=== PATIENT | female | born 1945 | race Caucasian/White ===

== ENCOUNTER 2016-09-06 13:49 | Inpatient (IN) | payer MEDICARE ==
[~2016-09-06] VITALS: Ht 167.6 cm; Wt 82.0 kg
[2016-09-10] MEDS ORDERED: ZOLP5TAB3 PO (09:13)
[2016-09-10] MEDS ORDERED: HYOS0.129 PO (09:13)
[2016-09-10] MEDS ORDERED: DULO1CAP2 PO (09:13)
[2016-09-10] MEDS ORDERED: VITA10003 PO (09:13)
[2016-09-10] MEDS ORDERED: NORC5TAB PO (09:13)
[2016-09-10] MEDS ORDERED: DIPH1TAB36 PO (09:13)
[2016-09-10] MEDS ORDERED: ONDA1TAB16 PO (09:13)
[2016-09-10] MEDS ORDERED: NEXI20CA PO (09:24)
[2016-09-16] MEDS ORDERED: PROPOFOL 200 MG/20 ML AMP IV ONE (11:32)
[2016-09-16] MEDS ORDERED: NEOSTIGMINE 3 MG/3 ML SYR IV ONE (11:32)
[2016-09-16] MEDS ORDERED: ONDANSETRON HCL 4 MG/2 ML VIAL IV PUSH ONE (11:32)
[2016-09-16] MEDS ORDERED: ePHEDrine/NS 50 MG/5 ML SYR IV ONE (11:32)
[2016-09-16] MEDS ORDERED: SODIUM CHLOR 0.9% 250 ML INJ 250 ML ONE (12:11)
[2016-09-16] MEDS ORDERED: VANCOMYCIN HCL 1000 MG VIAL ONE (12:11)
[2016-09-16 12:14] VITALS: BP 110/71; PULSE 75; RESP 20; TEMP 96.7; O2SAT 95
[2016-09-16] MEDS ORDERED: LACTATED RINGER'S 1000 ML INJ 1,000 ML ONE (12:27)
[2016-09-16] MEDS ORDERED: MIDAZOLAM HCL 5 MG/5 ML VIAL ONE (12:38)
[2016-09-16] MEDS ORDERED: DEXAMETHASONE SOD PHOS 4 MG/ML VIAL ONE (12:38)
[2016-09-16] MEDS ORDERED: LACTATED RINGER'S 1000 ML IV SCH (12:45)
[2016-09-16] MEDS ORDERED: SODIUM CHLORID 0.9% 500 ML IV SCH (12:45)
[2016-09-16] MEDS ORDERED: METOPROLOL TARTRATE 25 MG TAB PO PRN (12:45)
[2016-09-16] MEDS ORDERED: INSULIN HUMAN REGULAR 1,000 UNITS/10 ML VIAL SQ PRN (12:45)
[2016-09-16] MEDS ORDERED: ceFAZolin 2 GM PREMIX 50 ML ONE (12:57)
[2016-09-16] MEDS ORDERED: GENTAMICIN SULFATE 80 MG/2 ML VIAL ONE (12:58)
[2016-09-16] MEDS ORDERED: CLINDAMYCIN PHOS 600 MG/4 ML VIAL ONE (12:59)
[2016-09-16] MEDS ORDERED: CLINDAMYCIN PHOS 900 MG/6 ML VIAL ONE (12:59)
[2016-09-16] MEDS ORDERED: ROPIVACAINE PERI-ARTICULAR INJECTION. PERIART SCH ×5 (13:00)
[2016-09-16] MEDS ORDERED: VANCOMYCIN 1000 MG/NS 250 ML (for <70 kg) IV SCH ×2 (13:00)
[2016-09-16] MEDS ORDERED: CHLORHEXIDINE GLUCONATE 4% SOLN 120 ML BTL TOP SCH (13:00)
[2016-09-16] MEDS ORDERED: fentaNYL CITRATE 250 MCG/5 ML AMP ONE (13:12)
[2016-09-16] MEDS ORDERED: FAMOTIDINE 20 MG/2 ML VIAL ONE (13:12)
[2016-09-16] MEDS ORDERED: ACETAMINOPHEN 1000 MG/100 ML VIAL IV ONE (13:12)
[2016-09-16] MEDS ORDERED: MIDAZOLAM HCL 2 MG/2 ML VIAL ONE (13:59)
[2016-09-16] MEDS ORDERED: Post-op Orders (for Pharmacy) MISC XX ONE (16:45)
[2016-09-16] MEDS: PCA - TOTAL MG MORPHINE DELIVERED PER SHIFT SCH ×2 (16:45→22:00)
[2016-09-16] MEDS ORDERED: NALOXONE HCL 0.4 MG/ML AMP IV PRN (16:45)
[2016-09-16] MEDS ORDERED: SODIUM CHLORIDE 0.9% FLUSH 5 ML FLUSH IVF PRN (16:45)
[2016-09-16] MEDS ORDERED: DO NOT ADM ANY ANTICOAGULANT DRUGS XX PRN (16:48)
[2016-09-16] MEDS ORDERED: CPMMACHINE (16:50)
[2016-09-16] MEDS ORDERED: WALKER WHEELS/F1 MIS (16:50)
--- NOTE | 2016-09-16 16:51 | HHI.FF ---
Face to Face Verification Diagnosis: (1) Osteoarthritis of right knee Physical Therapy Gait training, Safety evaluation Knee: Total knee, Protocol: Right, Full weight bearing Right LE Weight Bearing: WB as tolerated Left LE Weight Bearing: WB as tolerated Nursing RN Days per Week: 5 x Week(s): 2 Nursing: Dressing changes (clean incision with alcohol and apply dry sterile dressing ) Additional Instructions Pt/INR q Friday and , call or text results to Jennifer ROSSI [phone] Goal INR 1.5-1.8 I have seen patient Lucy De Dios on 09/16/16. My clinical findings support the need for the requested home health care services because: Deconditioned w/ increased weakness I certify that my clinical findings support that this patient is homebound because: Post-op weakness Unsteady gait/balance Kraig Hargrove MD Sep 16, 2016 16:51
[2016-09-16] MEDS ORDERED: *morphine SULFATE 8 MG/ML PERIprocedure ONLY ONE ×3 (16:54→17:10)
[2016-09-16] MEDS ORDERED: MORPHINE SULFATE 8 MG/ML INJ IV PUSH ONE ×3 (16:54→17:22)
--- NOTE | 2016-09-16 17:26 | RADRPT ---
EXAM DATE/TIME: 09/16/2016 16:54 [facility] COMPARISON: No previous studies available for comparison. INDICATIONS : Post right knee arthroplasty MEDICAL HISTORY : Arthritis. SURGICAL HISTORY : None. ENCOUNTER: Initial ACUITY: 1 day PAIN SCORE: 9/10 LOCATION: Right knee FINDINGS: The patient is status post right total knee replacement with prosthesis in good position. No acute f racture or dislocation is noted. CONCLUSION: Status post right total knee replacement with prosthesis in good position. Stephane Oliveira MD on September 16, 2016 at 17:11 Board Certified Radiologist. This report was verified electronically.
[2016-09-16] MEDS: LACTATED RINGER'S 1000 ML INJ 1,000 ML IV SCH (17:40)
[2016-09-16] MEDS: MORPHINE SULFATE 30 MG/30 ML PCA IV SCH (17:48)
[2016-09-16] MEDS ORDERED: *HYDROmorphone PF 1 MG VIAL PERIprocedural Use ONLY ONE (17:55)
[2016-09-16] MEDS ORDERED: HYDROmorphone HCL PF 1 MG/ML VIAL IV ONE (17:55)
[2016-09-16] MEDS ORDERED: ACETAMINOPHEN/HYDROcodone 325 MG/7.5 MG TAB PO PRN (18:00)
[2016-09-16] MEDS ORDERED: HYOSCYAMINE 0.125 MG TAB PO PRN (18:00)
[2016-09-16] MEDS ORDERED: ONDANSETRON HCL 4 MG/2 ML VIAL IVP PRN (18:00)
[2016-09-16] MEDS ORDERED: *RESP: ALBUTEROL 2.5 MG/3 ML NEB (PRN) PERIprocedural Use ONLY NEB ONE (18:04)
[2016-09-16 18:58] VITALS: BP 113/61; PULSE 84; RESP 16; TEMP 96.8; O2SAT 93
[2016-09-16 20:00] VITALS: BP 121/65; PULSE 94; RESP 18; TEMP 97.1; O2SAT 96
[2016-09-16] MEDS: SODIUM CHLORIDE 0.9% FLUSH 5 ML FLUSH IVF SCH (20:33)
[2016-09-16] MEDS: ZOLPIDEM TARTRATE 5 MG TAB PO PRN (21:19)
[2016-09-17] VITALS (7 sets, daily range): BP systolic 106–129; BP diastolic 62–69; PULSE 75–88; RESP 16–20; TEMP 96.6–97.4; O2SAT 93–97
[2016-09-17] MEDS: MORPHINE SULFATE 30 MG/30 ML PCA IV SCH (05:22)
[2016-09-17] MEDS: PCA - TOTAL MG MORPHINE DELIVERED PER SHIFT SCH (05:38)
[2016-09-17 06:17] LABS: HEMATOCRIT 34.7 % (35.0-46.0); REVIEW FLAG FINAL
--- NOTE | 2016-09-17 06:54 | PD.ORT.PN ---
Subjective Subjective Remarks POD#1 R TKR No c/o pain No SOB/Chest pain Explained to pt operative findings Objective Vitals Vital Signs Date Time Temp Pulse Resp B/P Pulse Ox O2 Delivery O2 Flow Rate FiO2 09/17/16 04:00 96.6 87 16 113/67 94 09/17/16 00:00 97.0 88 16 113/64 93 09/16/16 20:00 97.1 94 18 121/65 96 09/16/16 18:58 96.8 84 16 113/61 93 09/16/16 18:30 92 16 121/66 96 Nasal Cannula 3 09/16/16 18:00 84 16 129/62 96 Nasal Cannula 3 09/16/16 17:48 16 09/16/16 17:45 78 16 118/58 95 Nasal Cannula 3 09/16/16 17:30 94 16 132/66 95 Nasal Cannula 3 09/16/16 17:15 84 16 111/57 94 Nasal Cannula 3 09/16/16 17:00 74 16 114/60 94 Nasal Cannula 3 09/16/16 16:48 98.3 72 16 116/60 93 Nasal Cannula 3 09/16/16 12:14 96.7 75 20 110/71 95 I/O 09/16/16 09/16/16 09/16/16 09/17/16 09/17/16 09/17/16 07:00 15:00 23:00 07:00 15:00 23:00 Intake Total 1213 ml 640 ml Output Total 400 ml 80 ml Balance 813 ml 560 ml Intake Oral 480 ml IV Total 533 ml 640 ml Autotransfusion 200 ml Output Urine Total 200 ml Drainage Total 80 ml Autotransfusion 200 ml # Voids 1 # Bowel Movements 0 Result Diagram: 09/17/16 0530 Imaging Last 24 hours Impressions Knee X-Ray 09/16/16 1643 Signed Impressions: Service Date/Time: Friday, September 16, 2016 16:54 - CONCLUSION: Status post right total knee replacement with prosthesis in good position. Stephane Oliveira MD Objective Remarks N/V intact Neg tarsha's;no calf tenderness Assessment & Plan Assessment and Plan Ortho stable PT,rehab Coumadin,TEDS,Sequentials for DVT prophylaxsis D/C home tomorrow. [facility] Nursing,PT Kraig Hargrove MD Sep 17, 2016 06:54
[2016-09-17 06:56] LABS: INTERNATIONAL NORMALIZED RATIO 1.2 RATIO
[2016-09-17] MEDS: SODIUM CHLORIDE 0.9% FLUSH 5 ML FLUSH IVF SCH ×2 (09:00→22:10)
[2016-09-17] MEDS: DULoxetine HCl DR 30 MG CAP PO SCH (09:19)
[2016-09-17] MEDS: PANTOPRAZOLE SOD 20 MG DELAYED RELEASE TAB PO SCH (09:19)
[2016-09-17] MEDS: LACTATED RINGER'S 1000 ML INJ 1,000 ML IV SCH ×2 (09:24→19:00)
--- NOTE | 2016-09-17 09:59 | MP ---
cc: MAITE LEÓN M.D., ALBERT DATE OF SURGERY: 09/16/2016 PREOPERATIVE DIAGNOSIS: Right knee severe osteoarthritis, genu valgus deformity severe tricompartmental osteoarthritis, genu valgus deformity. POSTOPERATIVE DIAGNOSIS Right knee severe osteoarthritis, genu valgus deformity severe tricompartmental osteoarthritis, genu valgus deformity. PROCEDURE Right total knee arthroplasty - cemented Biomet vanguard. SURGEON Aimee Hargrove MD ASSESSMENT MICKIE Gusman SPECIMENS SENT None. ESTIMATED BLOOD LOSS 50 cc COMPLICATIONS None ANESTHESIA General, regional. DRAINS: Two. TOURNIQUET TIME 54 minutes at 250 mmHg CONDITION: condition stable PLAN OF ACTIVITY: As per orders. PROCEDURE My molding line assistant MICKIE Gusman was present for the entire surgical case. She was medically necessary for entire case because of complexity case and to facilitate the performance of procedure. The SOLAR INSTALLATION TECHNICIAN at back table not a skill set this case manipulate the instruments e.g. multiple different soft tissue retractors, plantar and permanent implants including bone cement. The patient was operating room and had satisfactory anesthesia by Department of Anesthesia. Right lower extremity was prepped and draped in usual sterile manner. The extremity was exsanguinated by elevation tourniquet was inflated to 250 mmHg. Small anterior exposure knee was made to the knee. Primary capsulotomy performed the patella dislocated laterally, the knee was found to have severe tricompartmental osteoarthritis genu valgus deformity of approximately 8 degrees. The remaining portion of medial and lateral meniscus removed anterior fat pad and prepatellar fat pad was removed. Anterior cruciate ligament was removed, posterior cruciate ligament was preserved. Using Biomet Vanguard total knee arthroplasty system IM guide was used distal femur to accept a 62.5 femoral component it was cut 45 degrees valgus. The proximal tibia was extramedullary guide was used proximal tibia cut. This was to accept a 71 mm tibial component. Balancing was made on knee both flexion/extension. 10 mm insert was found to be satisfactory. Undersurface of the patella was removed to accept a 31 mm three-pronged patellar prosthesis. All trial components were removed. Preparation was made for cementing. Two packages of high viscosity bone cement was used. First the tibial component was cemented which is a 71 tibial component. Followed by the femoral component, which was a 62.5 mm femoral component followed by the tibia which is a 31 mm patellar prosthesis three-pronged. All excess bone cement was removed bone cement allowed to harden for 12.5 minutes. The knee 10 x 71 mm tibial prosthesis was inserted onto the tibial tray, with appropriate clicking and locking mechanism. The knee was irrigated with 4000 cc of saline solution. The knee was also injected with medication from pharmacy of 100 cc to provide postoperative hemostasis and analgesia. The tourniquet was deflated. All bleeders coagulated. Wound itself was dry closed over two Hemovac drains hooked up automatic type system the capsule and quadriceps mechanism was repaired using multiple interrupted #2 Tycron sutures. Subcutaneous layers using Vicryl 2-0 Vicryl. Skin approximated with skin atul. Sterile dressings were applied. The patient tolerated the procedure well and arrived to the Recovery Room in stable and satisfactory addition. MD ALEIDA Wilson/lindsey /4:36 PM /9:32 AM [facility]
[2016-09-17] MEDS ORDERED: BUPIVACAINE HCL PF 0.5% 30 ML VIAL NB ONE (11:50)
[2016-09-17] MEDS: ACETAMINOPHEN/HYDROcodone 325 MG/7.5 MG TAB PO PRN ×3 (12:47→22:09)
--- NOTE | 2016-09-17 14:18 | PD.CONS ---
HPI Service [facility] Requested By Reason for Consult Medical management Primary Care Physician Susan Sorensen MD Diagnoses: History of Present Illness Patient is a very pleasant 71-year-old female who is admitted under orthopedic services and underwent right total knee replacement September 16. She has been having right knee pain dealing with this for the past 10 years however in the last few months with increasing pain and difficulty ambulation. Patient currently seen first day postop. Very motivated with physical therapy classes. is very supportive. Plan is to go home with home health care with physical therapy. Patient currently denies any pain. [facility] consulted for medical management. Patient with history of mood disorder and chronic abdominal pain/irritable bowel syndrome. Very motivated attending- physical therapy classes Review of Systems Constitutional: DENIES: Diaphoretic episodes, Fatigue, Fever, Weight gain, Weight loss, Chills, Dizziness, Change in appetite, Night Sweats Endocrine: DENIES: Abnorml menstrual pattern, Heat/cold intolerance, Polydipsia , Polyuria, Polyphagia Eyes: DENIES: Blurred vision, Diplopia, Eye inflammation, Eye pain, Vision loss , Photosensitivity, Double Vision Ears, nose, mouth, throat: DENIES: Tinnitus, Hearing loss, Vertigo, Nasal discharge, Oral lesions, Throat pain, Hoarseness, Ear Pain, Running Nose, Epistaxis, Sinus Pain, Toothache, Odynophagia Respiratory: DENIES: Apneas, Cough, Snoring, Wheezing, Hemoptysis, Sputum production, Shortness of breath Cardiovascular: DENIES: Chest pain, Palpitations, Syncope, Dyspnea on Exertion , PND, Lower Extremity Edema, Orthopnea, Claudication Gastrointestinal: DENIES: Abdominal pain, Black stools, Bloody stools, Constipation, Diarrhea, Nausea, Vomiting, Difficulty Swallowing, Anorexia Genitourinary: DENIES: Abnormal vaginal bleeding, Dysmenorrhea, Dyspareunia, Sexual dysfunction, Urinary frequency, Urinary incontinence, Urgency, Hematuria , Dysuria, Nocturia, Vaginal discharge Musculoskeletal: COMPLAINS OF: Joint pain Integumentary: DENIES: Abnormal pigmentation, Pruritus, Rash, Nail changes, Breast masses, Breast skin changes, Nipple discharge Hematologic/lymphatic: DENIES: Bruising, Lymphadenopathy Immunologic/allergic: DENIES: Eczema, Urticaria Neurologic: DENIES: Abnormal gait, Headache, Localized weakness, Paresthesias, Seizures, Speech Problems, Tremor, Poor Balance Psychiatric: DENIES: Anxiety, Confusion, Mood changes, Depression, Hallucinations, Agitation, Suicidal Ideation, Homicidal Ideation, Delusions Past Family Social History Allergies: Coded Allergies: Latex (Verified Allergy, Severe, Rash, 09/10/16) Penicillin (Verified Allergy, Severe, Rash, 02/21/05) Toradol (Verified Allergy, Severe, CAUSES BLOOD CLOTS, 02/21/05) Percocet (Verified Allergy, Intermediate, vivid dreams, 09/10/16) pt sts she has very vivid dreams with color Percodan (Verified Allergy, Intermediate, vivid dreams, 09/10/16) pt sts very vivid dreams in color Past Medical History Mood disorder Irritable bowel syndrome Past Surgical History Bilateral hip surgery Had an EGD done in the past negative Screening colonoscopy unremarkable Reported Medications Duloxetine 30 mg daily Benadryl when necessary Tylenol when necessary zolpidem 5 mg at bedtime when necessary for pain Nexium Vitamin D Family History Unremarkable noncontributory Social History History of smoking quit 30 years ago Occasional wine Physical Exam Vital Signs Vital Signs Date Time Temp Pulse Resp B/P Pulse Ox O2 Delivery O2 Flow Rate FiO2 09/17/16 09:48 95 21 09/17/16 08:00 97.4 75 20 106/62 94 09/17/16 04:00 96.6 87 16 113/67 94 09/17/16 00:00 97.0 88 16 113/64 93 09/16/16 20:00 97.1 94 18 121/65 96 09/16/16 18:58 96.8 84 16 113/61 93 09/16/16 18:30 92 16 121/66 96 Nasal Cannula 3 09/16/16 18:00 84 16 129/62 96 Nasal Cannula 3 09/16/16 17:48 16 09/16/16 17:45 78 16 118/58 95 Nasal Cannula 3 09/16/16 17:30 94 16 132/66 95 Nasal Cannula 3 09/16/16 17:15 84 16 111/57 94 Nasal Cannula 3 09/16/16 17:00 74 16 114/60 94 Nasal Cannula 3 09/16/16 16:48 98.3 72 16 116/60 93 Nasal Cannula 3 Physical Exam GENERAL: in no apparent distress. SKIN: No rashes, ecchymoses or lesions. Cool and dry. HEAD: Atraumatic. Normocephalic. No temporal or scalp tenderness. EYES: Pupils equal round and reactive. Extraocular motions intact. No scleral icterus. No injection or drainage. ENT: Nose without bleeding, purulent drainage or septal hematoma. Throat without erythema, tonsillar hypertrophy or exudate. Uvula midline. Airway patent. NECK: Trachea midline. No JVD or lymphadenopathy. Supple, nontender, no meningeal signs. CARDIOVASCULAR: Regular rate and rhythm without murmurs, gallops, or rubs. RESPIRATORY: Clear to auscultation. Breath sounds equal bilaterally. No wheezes , rales, or rhonchi. GASTROINTESTINAL: Abdomen soft, non-tender, nondistended. MUSCULOSKELETAL: Right lower extremity with postop dressing in place Extremities without clubbing, cyanosis, or edema. N NEUROLOGICAL: Awake and alert. Cranial nerves II through XII intact. Motor and sensory grossly within normal limits. Five out of 5 muscle strength in all muscle groups. Normal speech. Laboratory Laboratory Tests Test 09/17/16 05:30 Hemoglobin 11.4 Hematocrit 34.7 Prothrombin Time 13.0 Prothromb Time International 1.2 Ratio Result Diagram: 09/17/16 0530 Imaging Last Impressions Knee X-Ray 09/16/16 1643 Signed Impressions: Service Date/Time: Friday, September 16, 2016 16:54 - CONCLUSION: Status post right total knee replacement with prosthesis in good position. Stephane Oliveira MD Assessment and Plan Assessment and Plan 71-year-old female admitted for Status post right total knee arthroplasty September Physical therapy daily Orthopedic surgery following History of mood disorder continue on the Loxitane History of irritable bowel syndrome continue on Bentyl DVT prophylaxis per orthopedic service patient on Coumadin bulk plant manager consulted for DMD for discharge planning Discussed Condition With Simona Aguilera MD Sep 17, 2016 14:18
[2016-09-17] MEDS: ALUMINUM/MAGNESIUM/SIMETH 30 ML CUP PO PRN ×2 (15:33→22:10)
[2016-09-17] MEDS ORDERED: WARFARIN SOD 5 MG TAB PO SCH (16:00)
[2016-09-17] MEDS: ZOLPIDEM TARTRATE 5 MG TAB PO PRN (22:18)
[2016-09-18 00:45] VITALS: BP 113/63; PULSE 89; RESP 16; TEMP 97.4; O2SAT 94
[2016-09-18] MEDS: ACETAMINOPHEN/HYDROcodone 325 MG/7.5 MG TAB PO PRN ×3 (02:07→10:30)
[2016-09-18] MEDS: ALUMINUM/MAGNESIUM/SIMETH 30 ML CUP PO PRN ×2 (06:22→10:29)
[2016-09-18 06:39] LABS: INTERNATIONAL NORMALIZED RATIO 1.2 RATIO; PROTHROMBIN TIME - PATIENT 13.9 SEC (9.8-11.6)
[2016-09-18] MEDS ORDERED: BEDSIDE COMMODE1 MI1 (07:44)
--- NOTE | 2016-09-18 07:47 | PD.ORT.PN ---
Subjective Subjective Remarks pt doing better, feels she can go home today c/p post op knee pain, no other complaints Objective Vitals Vital Signs Date Time Temp Pulse Resp B/P Pulse Ox O2 Delivery O2 Flow Rate FiO2 09/18/16 00:45 97.4 89 16 113/63 94 09/17/16 21:00 97.3 81 16 126/64 95 09/17/16 16:00 96.6 80 20 129/68 97 09/17/16 12:00 96.8 85 20 121/69 94 09/17/16 09:48 95 21 09/17/16 08:00 97.4 75 20 106/62 94 I/O 09/17/16 09/17/16 09/17/16 09/18/16 09/18/16 09/18/16 07:00 15:00 23:00 07:00 15:00 23:00 Intake Total 1000 ml 980 ml 460 ml 480 ml Output Total 480 ml 1080 ml Balance 520 ml -100 ml 460 ml 480 ml Intake Oral 360 ml 980 ml 460 ml 480 ml IV Total 640 ml Output Urine Total 400 ml 1075 ml Drainage Total 80 ml 5 ml # Voids 5 3 # Bowel Movements 0 0 0 Result Diagram: 09/17/16 0530 Other Results Laboratory Tests Test 09/18/16 05:24 Prothrombin Time 13.9 SEC (9.8-11.6) Prothromb Time International 1.2 RATIO Ratio Imaging Last 24 hours Impressions Knee X-Ray 09/16/16 1643 Signed Impressions: Service Date/Time: Friday, September 16, 2016 16:54 - CONCLUSION: Status post right total knee replacement with prosthesis in good position. Stephane Oliveira MD Objective Remarks sitting up in chair, in room right knee dressing dry N/V intact Neg tarsha's;no calf tenderness Assessment & Plan Assessment and Plan POD # 2 s/p R TKA Ortho stable PT,rehab Coumadin,TEDS,Sequentials for DVT prophylaxsis discharge home today with [facility] Jennifer Michel Sep 18, 2016 07:47
[2016-09-18 08:00] VITALS: BP 105/73; PULSE 80; RESP 20; TEMP 97.9; O2SAT 95
[2016-09-18] MEDS: PANTOPRAZOLE SOD 20 MG DELAYED RELEASE TAB PO SCH (08:19)
[2016-09-18] MEDS: DULoxetine HCl DR 30 MG CAP PO SCH (08:19)
[2016-09-18] MEDS ORDERED: WARFARIN SOD 4 MG TAB PO ONE (16:00)
--- NOTE | 2016-09-30 08:42 | HHI.DS ---
Discharge Summary Admission Date Sep 16, 2016 at 11:28 Discharge Date: Sep 18, 2016 Admitting Diagnosis right knee osteoarthritis Diagnosis: (1) Osteoarthritis of right knee Diagnosis: Principal Procedures R TKA Brief History This is a 71 year old female patient who presents with the following history. Patient has had continued right knee pain. She has failed all non-operative conservative care which includes NSAIDs, analgesics, multiple steroid injections and assistive ambulation. She has continued right knee pain and would like to undergo total knee arthroplasty to improve her quality of life. Imaging x-rays of the right knee show severe tri compartment osteoarthritis PE at Discharge sitting up in chair, in room right knee dressing dry N/V intact Neg tarsha's;no calf tenderness Hospital Course Patient underwent satisfactory anaesthesia by the dept of anaesthesia. She underwent right total knee arthroplasty on the date of admission. She was treated with low dose Coumadin night before surgery and will continue to be treated with low dose coumadin for four weeks post operatively. She was started with physical therapy, full weight bearing ambulation on pod #1. She was also started with CPM machine. She was seen and followed by medical during her stay. She progressed well and was discharged home with home health therapy and nursing on pod #2. Condition at time of discharge was stable. Pt Condition on Discharge: Stable Discharge Disposition: Disch w/ Home Health Serv Discharge Instructions Diet Instructions: Coumadin (Warfarin) Diet Activities You Can Perform: Weight Bearing as Jennifer Moreau Sep 30, 2016 08:42
== END 2016-09-18 11:21 | disposition home health service (06) | DRG 470 ==
LOC: HSDI 09-16 11:28 → N06B 09-16 18:54
PROVIDERS: ADMIT Orthopaedic Surgery Orthopaedic Surgery of the Spine; ATTEND Orthopaedic Surgery Orthopaedic Surgery of the Spine
PROC: 3E0T3CZ (ICD-10-PCS; 2016-09-16)
PROC: 0SRC0J9 Replacement of Right Knee Joint with Synthetic Substitute, Cemented, Open Approach (ICD-10-PCS; principal; 2016-09-16 14:44)
DX: M17.11 Unilateral primary osteoarthritis, right knee (principal); M21.061 Valgus deformity, not elsewhere classified, right knee; F39 Unspecified mood [affective] disorder; K58.9 Irritable bowel syndrome, unspecified; M81.0 Age-related osteoporosis without current pathological fracture; G89.29 Other chronic pain; Z87.891 Personal history of nicotine dependence
CPT/HCPCS: 73560; 85014; 85018; 85610; 86850; 86900; 86901; 86920; 86922; 94150; C1776; J0131; J0171; J0690; J0735; J1100; J1170; J1580; J1885; J2250; J2270; J2405; J2710; J2795; J3010; J3370; J7050; J7120; J7613; L1830

== ENCOUNTER → 2016-09-10 | Outpatient (CLI) | payer MEDICARE ==
[~2016-09-10] MED LIST: BEDSIDE COMMODE1 MI1; CPMMACHINE; DIPH1TAB36 PO; DULO1CAP2 PO; HYOS0.129 PO; NEXI20CA PO; NORC5TAB PO; ONDA1TAB16 PO; VITA10003 PO; WALKER WHEELS/F1 MIS; ZOLP5TAB3 PO
[2016-09-10 09:05] LABS: AUTOMATED NEUTROPHIL # 4.3 TH/MM3 (1.8-7.7); BASOPHIL % 0.5 % (0.0-2.0); EOSINOPHIL # 0.1 TH/MM3 (0-0.4); EOSINOPHIL % 1.7 % (0.0-4.0); HEMATOCRIT 39.1 % (35.0-46.0); HEMO FLAGS DIFF FINAL; LYMPH % 32.7 % (9.0-44.0); LYMPHOCYTE # 2.4 TH/MM3 (1.0-4.8); MEAN CELL VOLUME 90.1 FL (80.0-100.0); MEAN CORPUSCULAR HEMOGLOBIN 30.4 PG (27.0-34.0); MEAN CORPUSCULAR HGB CONC 33.8 % (32.0-36.0); MONO % 5.7 % (0.0-8.0); NEUT % 59.4 % (16.0-70.0); PLATELET COUNT 290 TH/MM3 (150-450); RED BLOOD COUNT 4.34 MIL/MM3 (4.00-5.30); RED CELL DISTRIBUTION WIDTH 12.5 % (11.6-17.2); WHITE BLOOD COUNT 7.2 TH/MM3 (4.0-11.0)
[2016-09-10 09:45] LABS: POTASSIUM 3.5 MEQ/L (3.5-5.1)
[2016-09-10 11:10] LABS: BLOOD, URINE NEG (NEG); GLUCOSE,URINE NEG (NEG); KETONE, URINE NEG (NEG); NITRITE,URINE NEG (NEG); PH, URINE 7.5 (5.0-8.5); SQUAMOUS EPITHELIAL CELL URINE 1 /hpf (0-5); URINE COLOR YELLOW (YELLW/STRAW)
[2016-09-10 11:13] LABS: COMMENT (UR) CATH-CULT NOT IND; CULTURE IF INDICATED CATH CULTURE NOT IND
--- NOTE | 2016-09-10 23:35 | EKG ---
Date Performed: 09/10/2016 Time Performed: 08:59:22 PTAGE: 71 years EKG: Sinus rhythm NONSPECIFIC T-WAVE ABNORMALITY BORDERLINE ECG NO PREVIOUS TRACING DOCTOR: Bonnie Goel Interpretating Date/Time 09/10/2016 23:34:38
== END ==
LOC: CPRE 08:09
PROVIDERS: ATTEND Orthopaedic Surgery Orthopaedic Surgery of the Spine
DX: Z01.810 Encounter for preprocedural cardiovascular examination (principal); Z01.812 Encounter for preprocedural laboratory examination; Z01.818 Encounter for other preprocedural examination; M17.10 Unilateral primary osteoarthritis, unspecified knee
CPT/HCPCS: 36415; 80048; 81001; 85025; 93005